=== PATIENT | female | born 1950 | race Caucasian/White ===

== ENCOUNTER 2019-03-11 08:43 | Observation (INO) | payer OTHER ==
[2019-03-09 11:35] VITALS: BP 124/63
[2019-03-09 11:37] LABS: BASOPHILS % (AUTO) 1.2 % (0.0-5.0); EOSINOPHILS % (AUTO) 1.3 % (0.0-8.0); HEMATOCRIT 44.4 % (36-48); LYMPHOCYTES % (AUTO) 44.2 % (21.0-51.0); MEAN CORPUSCULAR HEMOGLOBIN 32.1 pg (27.0-33.0); MEAN CORPUSCULAR VOLUME 91.6 fL (79-99); MONOCYTES % (AUTO) 8.8 % (3.0-13.0); NEUTROPHILS % (AUTO) 44.5 % (40.0-77.0); NUCLEATED RED BLOOD CELLS 0.1 % (0.0-0.19); PLATELET COUNT (AUTO) 216 K/uL (130-400); RED BLOOD CELL COUNT(AUTO) 4.84 MIL/uL (4.00-5.50); RED CELL DISTRIBUTION WIDTH 13.2 % (11.0-15.5); WHITE BLOOD COUNT (AUTO) 4.8 K/uL (4.8-10.8)
[~2019-03-11] VITALS: Ht 157.5 cm; Wt 55.6 kg
[2019-03-11] VITALS (23 sets, daily range): BP systolic 91–127; BP diastolic 48–78
[2019-03-11] MEDS: CEFAZOLIN SODIUM 1 GM VIAL IVP SCH ×3 (06:00→22:46)
[~2019-03-11 08:43] MED LIST: ATOR20TA65 PO; CALC-1153 PO; CETI10TA57 PO; D3 PO
[2019-03-11] MEDS: LACTATED RINGERS 1000ML 1,000 ML IV SCH ×2 (10:40→14:30)
[2019-03-11] MEDS: CALDOLOR 800MG+NS 250ML 250 ML IV SCH ×3 (11:00→23:01)
[2019-03-11] MEDS ORDERED: DEXAMETHASONE SOD PHOSPHATE 10MG/ML 1ML VIAL ONE (11:59)
[2019-03-11] MEDS ORDERED: PROPOFOL 10 MG/ML 20ML VIAL IV ONE (12:00)
[2019-03-11] MEDS ORDERED: LIDOCAINE PF 2% 5ML ABBOJECT ONE ×2 (12:00→12:04)
[2019-03-11] MEDS ORDERED: SUCCINYLCHOLINE 200MG/10ML SYR ONE (12:00)
[2019-03-11] MEDS ORDERED: NEOSTIGMINE 5MG/5ML SYR IV ONE (12:00)
[2019-03-11] MEDS ORDERED: ONDANSETRON HCL 4 MG/2 ML VIAL ONE (12:00)
[2019-03-11] MEDS ORDERED: FENTANYL CITRATE PF 50 MCG/1 ML 2ML VIAL ONE ×2 (12:00→14:02)
[2019-03-11] MEDS ORDERED: MIDAZOLAM HCL 1 MG/ML 2ML VIAL ONE (12:00)
[2019-03-11] MEDS ORDERED: GLYCOPYRROLATE 1 MG/5 ML SYRINGE ONE (12:00)
[2019-03-11] MEDS ORDERED: ROCURONIUM 10MG/1ML SYR 10 MG/ML ML ONE (12:02)
[2019-03-11] MEDS ORDERED: MEPERIDINE-PF 25 MG/ML SYG ONE ×3 (12:52→21:08)
[2019-03-11] MEDS ORDERED: BUPIVACAINE/PF 0.25% 30ML VIAL IJ ONE (13:19)
[2019-03-11] MEDS ORDERED: LIDOCAINE 1%-EPI 1:100,000 20 ML VIAL IJ ONE (13:19)
[2019-03-11] MEDS ORDERED: DEXTROSE 5 %-0.45 % NACL 1,000 ML IV PRN (14:20)
[2019-03-11] MEDS ORDERED: DOCUSATE SODIUM 100 MG CAP PO PRN (14:30)
[2019-03-11] MEDS ORDERED: BISACODYL 10 MG SUPP.RECT RC PRN (14:30)
[2019-03-11] MEDS ORDERED: MEPERIDINE-PF 75 MG/ML SYG IM PRN (14:30)
[2019-03-11] MEDS ORDERED: PROMETHAZINE HCL 25 MG/ML 1ML AMPULE IM PRN ×2 (14:30)
[2019-03-11] MEDS ORDERED: TRAMADOL /APAP 37.5MG/325MG TAB PO PRN (14:30)
[2019-03-11] MEDS ORDERED: SIMETHICONE 80 MG TAB.CHEW PO PRN (14:30)
[2019-03-11] MEDS ORDERED: MEPERIDINE-PF 50 MG/ML SYG ONE (21:08)
[2019-03-12 03:33] VITALS: BP 111/61
[2019-03-12] MEDS: CEFAZOLIN SODIUM 1 GM VIAL IVP SCH (05:53)
[2019-03-12] MEDS: CALDOLOR 800MG+NS 250ML 250 ML IV SCH (06:05)
[2019-03-12 06:28] LABS: HEMATOCRIT 35.8 % (36-48); MEAN CORPUSCULAR HEMOGLOBIN 31.6 pg (27.0-33.0); MEAN CORPUSCULAR VOLUME 90.2 fL (79-99); PLATELET COUNT (AUTO) 187 K/uL (130-400); RED BLOOD CELL COUNT(AUTO) 3.97 MIL/uL (4.00-5.50); RED CELL DISTRIBUTION WIDTH 12.8 % (11.0-15.5); WHITE BLOOD COUNT (AUTO) 10.9 K/uL (4.8-10.8)
[2019-03-12] MEDS ORDERED: ONDANSETRON HCL 4 MG/2 ML VIAL ONE (07:13)
[2019-03-12] MEDS ORDERED: ONDANSETRON HCL 4 MG/2 ML VIAL IVP PRN (07:15)
[2019-03-12 07:30] VITALS: BP 92/56
[2019-03-12] MEDS ORDERED: CETIRIZINE HCL 5 MG TABLET PO SCH (09:00)
--- NOTE | 2019-03-12 11:15 | NUR ---
ROUNDING ON PATIENT. DISCHARGE POC DISCUSSED. QUESTIONS INVITED AND ANSWERED. PT VOICED UNDERSTANDING.
[2019-03-12 11:26] VITALS: BP 132/67
--- NOTE | 2019-03-12 13:45 | NUR ---
PATIENT LEFT UNIT VIA WHEELCHAIR WITH BELONGINGS IN HAND. PERSONAL VEHICLE USED FOR TRANSPORTATION ACCOMPANIED BY . NO COMPLAINTS OR CONCERNS ADDRESSED FROM PATIENT ON DISCHARGE
[2019-03-12] MEDS ORDERED: IBUPROFEN 800 MG TAB PO SCH (14:30)
--- NOTE | 2019-03-12 14:37 | NUR ---
CM NOTES PT TO BE DISCHARGED TODAY Ag LOYOLA . NO CONCERNS VOICED BY RN/PT, NO TRIGGERS TO CM, DETAILED CM ASSESSMENT DEFERRED AT THIS TIME , WILL RE VISITS IF STAY EXTENDS Addendum: 03/13/19 at 0720 by SHAISTA PEREIRA RN CM Amended: Links added.
== END 2019-03-12 13:45 | disposition home or self-care (01) ==
LOC: DAH 08:43 → INTOOBSV 08:44 → WSH 08:44
DX: N81.4 Uterovaginal prolapse, unspecified (principal); R89.6 Abnormal cytological findings in specimens from other organs, systems and tissues; Z88.5 Allergy status to narcotic agent
CPT/HCPCS: 36415 ×2; 58552; 85025; 85027; 86850; 86900; 86901; 88307; 96365; 96366 ×2; 96372; 96375; 96376; A4215 ×3; A4221; A4222; A4223; A4344; A4600; A4663; A6260; C1769 ×2; G0168; G0378 ×29; J0330; J0690 ×3; J1100; J1741 ×3; J2001 ×2; J2175 ×4; J2250; J2405 ×2; J2550; J2704; J2710; J3010 ×2; J3490 ×3; J7120 ×2